=== PATIENT | male | born 1985 ===

== ENCOUNTER 2017-09-16 10:00 | Emergency (ER) | payer OTHER ==
[2017-09-16 10:08] VITALS: RESP 16
[2017-09-16] MEDS ORDERED: Tetanus/Diphtheria Toxoids 0.5 ml Syringe IM ONE ×2 (10:34→11:19)
[2017-09-16] MEDS ORDERED: Lidocaine 2% Inj (20ml) INFIL ONE (10:34)
--- NOTE | 2017-09-16 10:38 | C.PDOC ---
History Of Present Illness 31 year old male presents to the emergency department for evaluation of a right foot laceration sustained prior to arrival at home. Patient reports that he stepped on a piece of glass, when sustained laceration to the sole of the right foot. Patient reports mild bleeding from the wound. Otherwise , pt denies fever , chills, recent illness, sore throat, cough, denies deformities, weakness, sensory or vascular deficits to right foot. As per family member, who is at bedside, pt was drinking last night. Pt appears AAO#3, in pain. Time Seen by Provider: 09/16/17 10:33 Chief Complaint (Nursing): Abnormal Skin Integrity History Per: Patient History/Exam Limitations: no limitations Onset/Duration Of Symptoms: Hrs Current Symptoms Are (Timing): Still Present Location Of Injury: Right: Foot Quality Of Symptoms: Other (laceration) Past Medical History Reviewed: Historical Data, Nursing Documentation, Vital Signs Vital Signs: Last Vital Signs Temp 98.9 F 09/16/17 13:46 Pulse 80 09/16/17 13:46 Resp 16 09/16/17 13:46 BP 110/69 09/16/17 13:46 Pulse Ox 98 09/16/17 13:46 - Medical History PMH: No Chronic Diseases Surgical History: No Surg Hx Family History: States: No Known Family Hx - Social History Hx Tobacco Use: No Hx Alcohol Use: Yes Hx Substance Use: No - Immunization History Hx Tetanus Toxoid Vaccination: No Hx Influenza Vaccination: Yes Hx Pneumococcal Vaccination: No Review Of Systems Except As Marked, All Systems Reviewed And Found Negative. Constitutional: Negative for: Fever, Chills ENT: Negative for: Throat Pain Cardiovascular: Negative for: Chest Pain Respiratory: Negative for: Cough, Shortness of Breath Genitourinary: Negative for: Dysuria, Incontinence Musculoskeletal: Positive for: Foot Pain Skin: Positive for: Other (laceration to right foot) Neurological: Negative for: Weakness, Numbness, Headache, Dizziness Physical Exam - Physical Exam Appears: Well, Non-toxic, No Acute Distress Skin: Warm, Dry, No Rash, Other (C-shaped, cutaneous, irregular laceration 4cm length to midplantar aspect right foot, mild bloody oozing. No obvious FB noted in wound. ) Head: Atraumatic, Normacephalic Eye(s): bilateral: PERRL Neck: Trachea Midline, No Midline Cervical Tenderness, No Paracervical Tenderness, Supple Chest: Symmetrical, No Deformity, No Tenderness Extremity: Normal ROM (right foot, no neurovascular deficits.), Tenderness ( mild over plantar asepct Right foot), No Pedal Edema, Capillary Refill (< 2 sec) , No Deformity, No Swelling Neurological/Psych: Oriented x3, Normal Speech, Normal Cognition, Normal Motor, Normal Sensation, Normal Reflexes ED Course And Treatment O2 Sat by Pulse Oximetry: 100 (RA) Pulse Ox Interpretation: Normal - Other Rad Right Foot X-Ray: Viewed By Me, Read By Radiologist Interpretation: IMPRESSION: While there is no fracture or dislocation appreciated throughout the right foot, multiple retained radiodense foreign bodies are seen at the superficial and deep soft tissues at the plantar midfoot. These are found deep to evidence of local laceration superficially. Progress Note: Plan: XR Right Foot. Lidocaine 2%. Tenivac 0.5ml IM. Imaging review, (+) FB in wound. Wound over midplantar aspect Right foot was locally infiltrated with Lidocaine 2%, thoroughly washed, irrigated. case discussed with rad.on-call to Dr. Dotson 10:45 for consult regarding foreign body presence in the right foot. case discussed with Podiatry resident at 11:00, will eval pt in ED. IV Ancef, Toradol, Zofran initiated. Pt was seen by Podiatry resident ( see consult note). After case discussed with podiatry attending , Wound was closed by Podiatry resident. Pt was instructed direxctly on wound care, crutches and abx recommend, with discharge and outpt f/ u on 09/18/17. repeat imaging request-performed. On re-eval, pt is afebrile, hemodynamiclay stable. Non-toxic. AMbulate with assistance of crutches. Right foot: FAROM, no neurovascular deficits. WOund closed by podiatry resident. Pt advised to F/u with Podiatry clinic on 09/18/17 for further eval/ tx. return to Ed if any worsening or new changes. Disposition Counseled Patient/Family Regarding: Studies Performed, Diagnosis, Need For Followup, Rx Given - Disposition Referrals: [facility] [Outside] Disposition: HOME/ ROUTINE Disposition Time: 12:56 Condition: STABLE Additional Instructions: REST, AVOID PROLONG WALKING KEEP FOOT ELEVATED FOR 2-3 DAYS NONE-WEIGHT BEARING, USE CRUTCHES FOR AMBULATION TAKE ANTIBIOTIC PRESCRIBED FOLLOW UP WITH PODIATRY CLINIC OM Monday09/18/17 FROM NOON-3PM FOR FURTHER EVALUATION RETURN TO ED IF ANY WORSENING OR NEW CHANGES. Prescriptions: Amoxicillin/Clavulanate [Augmentin 875 MG-125 MG] 1 tab PO BID #14 tab traMADol [Ultram] 50 mg PO TID #7 tab Instructions: Laceration Infection, Foreign Body in Skin Forms: [employer] (Indonesian), Work Excuse Print Language: GEORGIAN - Clinical Impression Clinical Impression: Laceration of foot, Foreign body of skin of plantar aspect of foot - PA / CHEMICAL WORKER / Resident Statement MD/DO has reviewed & agrees with the documentation as recorded. - Scribe Statement The provider has reviewed the documentation as recorded by the Scribe (Pan Celestin) All medical record entries made by the Scribe were at my direction and personally dictated by me. I have reviewed the chart and agree that the record accurately reflects my personal performance of the history, physical exam, medical decision making, and the department course for this patient. I have also personally directed, reviewed, and agree with the discharge instructions and disposition.
[2017-09-16] MEDS ORDERED: Lidocaine 2% MPF (5 ml) Inj ONE ×2 (10:40)
--- NOTE | 2017-09-16 10:54 | RAD ---
Date of service: 09/16/2017 PROCEDURE: Right Foot Radiographs. HISTORY: r/i fx and FB COMPARISON: None. FINDINGS: BONES: No acute fracture or destructive bony lesion identified. JOINTS: Normal. SOFT TISSUES: Multiple punctate radiodensities are seen in the soft tissues of the plantar midfoot deep to emphysematous changes at the superficial midfoot plantar soft tissues suggestive of multiple tiny punctate retained radiodense foreign bodies. There are 3 larger foci varying in size from a small as 6 mm up to 9 mm best appreciated in the AP and the oblique projections. All of felt to represent retained radiodense foreign bodies. OTHER FINDINGS: None. IMPRESSION: While there is no fracture or dislocation appreciated throughout the right foot, multiple retained radiodense foreign bodies are seen at the superficial and deep soft tissues at the plantar midfoot. These are found deep to evidence of local laceration superficially.
[2017-09-16] MEDS ORDERED: ceFAZolin IV 1 gm in Dextrose 1 GM/50 ML BAG IVPB STA (10:58)
[2017-09-16] MEDS ORDERED: ceFAZolin 1 gm in NS 1 GM/100 ML BAG IVPB ONE (11:09)
[2017-09-16 13:46] VITALS: BP 110/69; PULSE 80; TEMP 98.9
[2017-09-16 15:28] VITALS: O2SAT 100
--- NOTE | 2017-09-16 18:03 | RAD ---
Date of service: 09/16/2017 PROCEDURE: Right Foot Radiographs. HISTORY: injury r/o FB COMPARISON: None. FINDINGS: BONES: A solitary potential residual dominant retained foreign body is appreciated at the deep midfoot plantar soft tissues as 1 of the 3 retained radiodense foreign bodies previously identified. Punctate radiodensities are seen in the mid depth soft tissues at the midfoot plantar region potentially reflecting additional tiny retained radiodense foreign bodies. Majority appeared to have been cleared. No acute fracture, subluxation or dislocation in the interval. JOINTS: Normal. SOFT TISSUES: As above. OTHER FINDINGS: None. IMPRESSION: Limited residual retained radiodense foreign bodies as discussed above including 1 of the 3 dominant foreign bodies at the midfoot plantar soft tissues as discussed above.
--- NOTE | 2017-09-17 17:30 | CP.PCM.CON ---
History of Present Illness - History of Present Illness History of Present Illness: Podiatry Consult Note- Dr. Estrella 31M seen and evaluated at bedside for right foot laceration secondary to stepping on a broken beer bottle. Patient reports that he woke up this morning, got out of bed, and stepped on the beer bottle. Reports bleeding initially but stopped. Reports throbbing pain to the right foot. Rates the pain 5/10 and describes the pain being localized to the laceration site. Denies nausea, fever , shortness of breath, chest pains or chills. Denies calf tenderness. Denies numbness and tingling PMH: denies PSH: denies ALL: NDKA MEDS: none SH: denies smoking, reports drinking EtOH, denies illicit drug use FH: noncontributory Past Patient History - Past Social History Smoking Status: Never Smoked - PSYCHIATRIC Hx Substance Use: No - SURGICAL HISTORY Hx Surgeries: Yes Other/Comment: lt arm sx Meds Home Medications: Home Medication List Medication Instructions Recorded Confirmed Type Amoxicillin/Clavulanate [Augmentin 1 tab PO BID #14 tab 09/16/17 Rx 875 MG-125 MG] traMADol [Ultram] 50 mg PO TID #7 tab 09/16/17 Rx Allergies/Adverse Reactions: Allergies Allergy/AdvReac Type Severity Reaction Status Date / Time No Known Allergies Allergy Unverified 09/16/17 10:05 Physical Exam - Constitutional Appears: Well, Non-toxic, No Acute Distress - Extremities Exam Extremities exam: Negative for: calf tenderness Additional comments: VASC: DP and PT 2/4 bilaterally, CFT < 3 seconds x 10 digits, temperature gradient right lower extremity warm to warm, left lower extremity is warm at proximal knees to cool distally to toes, mild nonpitting edema to the right foot ORTHO: mild pain with palpation to the right foot at laceration site, AROM to digits WNL, MM is 5/5 in all four compartments of dorsiflexion, plantarflexion, inversion and eversion NEURO: gross and protective sensation intact DERM: C shaped laceration at the plantar aspect of lateral aspect of right midfoot measuring approximately 3 cm in length and 1 cm deep to subcutaneous layer. Wound base is 100% granular, mild sangious drainage noted. No tendons or bones exposed. No visible glass fragments noted. No erythema, no abscess, no fluctanance, no clinic signs of infection - Neurological Exam Neurological exam: Alert, Oriented x3 - Psychiatric Exam Psychiatric exam: Normal Affect, Normal Mood Results - Vital Signs Recent Vital Signs: Last Vital Signs Temp 98.9 F 09/16/17 13:46 Pulse 80 09/16/17 13:46 Resp 16 09/16/17 13:46 BP 110/69 09/16/17 13:46 Pulse Ox 100 09/16/17 15:29 Assessment & Plan - Assessment and Plan (Free Text) Assessment: 31M right plantar midfoot laceration secondary to foreign body Plan: Patient seen and examined X-rays Impression: no fracture or dislocated appreciated throughout the right foot, multiple retained radiodense foreign bodies are seen at the superficial and deep soft tissues at the plantar midfoot. These are found deep to evidence of local laceration superficially Discussed the plan in detail with attending Dr. Estrella Cleansed laceration with copious amounts of saline mixed betadine 11 cc of 2% lidocaine plain given in local block fashion to laceration site Explored laceration for additional foreign body with a pickup, no foreign body visible or appreciated as seen in X-rays, cleansed and irrigated laceration site with copious amounts of saline mixture betadine, patient tolerated procedure well Cleansed ulceration with saline solution, dressed with xerform, dsd, abd, kerlix and DEION Dispense surgical shoe Post X-rays taken with limited residual retained radiodense foreign bodies as discussed above including 1 of the 3 dominant foreign bodies at the midfoot plantar soft tissues as discussed above Patient to be NWB with crutches Recommends abx outpatient Given dose of Cefazolin 1g in ED Given dose of Tenivac .5ml given in ED Educated on signs and symptoms of infection, advised to seek help immediately if present Educated on RICE protocol Patient will follow up with Dr. Estrella in clinic Monday Thank you for allowing us to participate in patient's care Please reconsult as needed - Date & Time Date: 09/16/17 Time: 13:00
== END 2017-09-16 13:49 | disposition home or self-care (01) ==
LOC: C.ER 10:00
DX: S91.321A Laceration with foreign body, right foot, initial encounter (principal); W25.XXXA Contact with sharp glass, initial encounter
CPT/HCPCS: 12002; 73620; 73630; 90471; 90714; 96365; 96375; 97116; 97161; 99283; G8978; G8979; G8980; J0690; J1885; J2405

== ENCOUNTER 2017-09-22 08:23 | Day surgery (SDC) | payer SELFPAY ==
[2017-09-21 11:59] VITALS: BMI 24.3
[2017-09-22] MEDS ORDERED: Lidocaine Hydrochloride 10 ML INJ ONE (10:30)
[2017-09-22] MEDS ORDERED: Bupivacaine 0.25% 20 ML INJ IJ ONE (10:30)
[2017-09-22] MEDS ORDERED: ceFAZolin IV 2 gm in Dextrose 2 GM/50 ML BAG IVPB ONE (10:31)
[2017-09-22] MEDS ORDERED: Propofol 10 mg/ml Inj (20 ML) ONE (10:48)
[2017-09-22] MEDS ORDERED: Midazolam 2 MG/2 ML VIAL ONE (10:48)
[2017-09-22] MEDS ORDERED: Oxycodone/Acetaminophen 5/325 mg Tab PO PRN ×2 (13:38)
[2017-09-22] MEDS ORDERED: HYDROmorphone 0.5 mg/0.5 ml ISec IVP PRN (13:40)
--- NOTE | 2017-09-22 13:44 | PCM.SURG1 ---
Surgeon's Initial Post Op Note - Surgeon's Notes Surgeon: Dr. Freya Estrella Director Human Services: Dr. Nickie Mcelroy, PGY-1, Dr. Della Mendoza, PGY2 Type of Anesthesia: General LMA Anesthesia Administered By: Dr. Jacobs Pre-Operative Diagnosis: Right foot laceration Operative Findings: see dictation. materials: 2-0 vicryl, 2-0 nylon, arthroflex. injectibles: 20 cc of local anesthesia PT block Post-Operative Diagnosis: same Operation Performed: Right foot flexor hallucis longus and flexor digitorum longus tendon repair, right foot laceration repair Specimen/Specimens Removed: Cultures taken of deep wound and sent for culture and sensitivity Estimated Blood Loss: EBL {In ML}: 10 Drains Used: No Drains Post-Op Condition: Good Date of Surgery/Procedure: 09/22/17 Time of Surgery/Procedure: 13:44
[2017-09-22 14:11] VITALS: RESP 19
[2017-09-22 14:39] VITALS: BP 124/70; PULSE 78; TEMP 98.6; O2SAT 98
--- NOTE | 2017-09-25 22:00 | PCM.OP ---
Operative Report - Operative Report Date of Surgery/Procedure: 09/22/17 Time of Surgery/Procedure: 10:30 Surgeon: Dr. Freya Estrella Dpm Headliner Installer: Nickie Mcelroy Pgy1, Della Sarmiento PGY2 Anesthesia/Sedation: general LMA Pre-Operative Diagnosis: right foot laceration with flexor hallucis longus and flexor digitorum longus tear; foreign body in the right foot Post-Operative Diagnosis: right foot laceration with flexor hallucis longus and flexor digitorum longus tear; foreign body in the right foot Indication for Surgery: The patient is a 32 year-old male with the above diagnoses. The patient has exhausted conservative treatment at this time and now requests surgical intervention. The patient signed the consent after careful explanation of risks, benefits, complications and alternatives for surgical procedure. No guarantees were given nor implied. 2 grams of ancef IV were given to the patient hour prior to the procedure. NPO status was confirmed prior to taking pt to the OR. Operative Findings: The patient was brought to the operating room and placed on the operating room table in supine position. A well-padded pneumatic calf tourniquet was placed to the patient's mid leg. After induction of general anesthesia with LMA, the foot was prepped and draped in usual sterile manner. The right lower extremity was elevated for 5 minutes and Pneumatic calf tourniquet was then inflated to 250 mmHg and procedure began. Procedure/Operation Description: The attending was present during the case. Attention was drawn to the plantar aspect of right midfoot. A circular lesion was noted extending down to the second layer of plantar muscles. A 5 cm linear longitudinal incision was made extending distal and medial from the lesion. The circular lesion and linear incision was deepened through the subcutaneous tissues using sharp and blunt dissection. Care was taken to identify and retract all vital neurovascular structures. All bleeders were cauterized and ligated as necessary. Deep wound cultures were taken at this time and sent for culture and sensitivity. A piece of glass was seen and taken out from the wound measuring approximaltey .2 cm x .4 cm. Flexor hallucis longus and flexor digitorum longus tendon to the second digit tears were noted. The distal aspect of the flexor hallucis longus tendon was then identified and clamped. The distal aspect of the flexor digitorum longus tendon to the second digit was then identified and clamped. The proximal aspect of the FHL and FDL tendon were then identified at the knot of jose juan and clamped as well. The wound was then flished with copious amount of sterile normal saline solution. The distal aspect of the fhl tendon and fdl tendon were sutured together using a 2-0 vicryl. The proximal aspect was then suture with the distal aspect of the tendons using a 2-0 vicryl. A notable gap of 2 cm was noted between the tendon. Arthroflex 4 cm ax 7 cm was then cut to 2 x 2 cm and rolled up and was then used to fill up the gap and sutured together with 2-0 vicryl. The subcuticular tissues were then reapproximated and coapted utilizing #2-0 Vicryl. The skin was then reapproximated and coapted utilizing #2-0 Prolene and 3-0 nylon in a simple suture technique. The patient received a total of 20 ccof a 1:1 mix of 1% lidocaine plain and 0.25% Marcaine plain in a posterior tibial block to the right ankle. Area dressed with xeroform, and dry sterile dressing. Patients right lower extremity was then dressed with webril, posterior splint and DEION. Torniquet time was a total of 90 minutes. Estimated Blood Loss: 10 cc Blood Replaced: n/a Drains: none Complications: none Specimen: none Discharge & Condition: The patient tolerated the anesthesia and procedure well and was escorted to the recovery room with vital signs stable and neurovascular status intact to the right foot. Patient will remain in the posterior splint with crutches. This patient will follow up with Dr. Estrella in clinic on Monday.
== END 2017-09-22 15:57 | disposition home or self-care (01) ==
LOC: C.SDS 08:23
PROVIDERS: ATTEND Podiatrist Foot & Ankle Surgery
DX: S91.321A Laceration with foreign body, right foot, initial encounter (principal); S96.821A Laceration of other specified muscles and tendons at ankle and foot level, right foot, initial encounter; W45.8XXA Other foreign body or object entering through skin, initial encounter
CPT/HCPCS: 12032; 28200; 87070; 87181; J0690; J1100; J2001; J2250; J2405; J2704; J3010; Q4125